=== PATIENT | male | born 1940 | race Caucasian/White ===

== ENCOUNTER → 2020-04-14 | Outpatient (CLI) | payer MEDICARE ==
[~2020-04-14] MED LIST: PRIM50TA34 PO
[2020-04-14 15:50] LABS: MICROSCOPIC NOT IND
[2020-04-14 15:52] LABS: BASOPHILS # (AUTO) 0.03 x10^3/uL (0-0.1); BASOPHILS % (AUTO) 0 % (0-1); EOSINOPHILS # (AUTO) 0.19 x10^3/uL (0-0.4); EOSINOPHILS % (AUTO) 2 % (1-7); LYMPHOCYTES # (AUTO) 1.89 x10^3/uL (1-3.4); LYMPHOCYTES % (AUTO) 23 % (22-44); MD NO; MEAN CORPUSCULAR HEMOGLOBIN 31.3 pg (27.5-34.5); MEAN CORPUSCULAR HGB CONC 33.3 g/dL (33.2-36.2); MEAN CORPUSCULAR VOLUME 94.1 fL (81-97); MEAN PLATELET VOLUME 7.6 fL (7.4-10.4); MONOCYTES # (AUTO) 1.06 x10^3/uL (0.2-0.8); MONOCYTES % (AUTO) 13 % (2-9); NEUTROPHILS # (AUTO) 5.03 x10^3/uL (1.8-6.8); NEUTROPHILS % (AUTO) 61 % (42-75); PLATELET COUNT 255 x10^3/uL (130-400); RED BLOOD COUNT 4.82 x10^6/uL (4.38-5.82); RED CELL DISTRIBUTION WIDTH 14.2 % (9.4-14.8)
[2020-04-14 15:58] LABS: PROTHROMBIN TIME 10.6 Seconds (9.6-11.5)
[2020-04-14 15:59] LABS: ANION GAP 6 mmol/L (5-15); CHLORIDE 103 mmol/L (98-107); CREATININE 0.79 mg/dL (0.7-1.3)
== END | disposition home or self-care (01) ==
LOC: STAR 14:35
PROVIDERS: ATTEND Neurological Surgery
DX: Z01.818 Encounter for other preprocedural examination (principal); Z01.811 Encounter for preprocedural respiratory examination; Z01.812 Encounter for preprocedural laboratory examination; M54.16 Radiculopathy, lumbar region; M54.5 Low back pain; R82.90 Unspecified abnormal findings in urine; R94.31 Abnormal electrocardiogram [ECG] [EKG]; I45.10 Unspecified right bundle-branch block
CPT/HCPCS: 36415; 71046; 80048; 81003; 85025; 85610; 85730; 93005

== ENCOUNTER 2020-04-28 08:48 | Observation (INO) | payer MEDICARE ==
[~2020-04-28] VITALS: Ht 175.3 cm; Wt 84.5 kg
[~2020-04-28 08:48] MED LIST changes: +BACITRACIN 50,000 UNIT ONE; +BUPIVACAINE/PF-EPI 0.5% 1:200K ONE; +VANCOMYCIN 1,000 MG ONE
[2020-04-28] MEDS ORDERED: FENTANYL PF 250 MCG/5ML ONE (09:07)
[2020-04-28] MEDS ORDERED: MIDAZOLAM 1 MG/ML, 2ML ONE (09:07)
[2020-04-28] MEDS ORDERED: LACTATED RINGERS 1,000 ML IV SCH (09:08)
[2020-04-28] MEDS ORDERED: CHLORHEXIDINE 15 ML UDC MM STA (09:08)
[2020-04-28] MEDS ORDERED: ACETAMINOPHEN 500 MG TABLET ONE (09:17)
[2020-04-28] MEDS ORDERED: CHLORHEXIDINE 15 ML UDC ONE (09:17)
[2020-04-28] MEDS ORDERED: ACETAMINOPHEN 500 MG TABLET PO ONE (09:30)
[2020-04-28] MEDS ORDERED: GLYCOPYRROLATE 0.2MG/1ML, 5ML ONE (10:21)
[2020-04-28] MEDS ORDERED: ONDANSETRON 2MG/ML, 2ML ONE (10:21)
[2020-04-28] MEDS ORDERED: PROPOFOL 10 MG/ML, 20ML ONE (10:21)
[2020-04-28] MEDS ORDERED: ROCURONIUM 10 MG/ML,10ML ONE (10:21)
[2020-04-28] MEDS ORDERED: NEOSTIGMINE 1 MG/ML, 10ML ONE (10:21)
[2020-04-28] MEDS ORDERED: PHENYLEPHRINE 10 MG/ML ONE (10:21)
[2020-04-28] MEDS ORDERED: DEXAMETHASONE 4 MG/ML, 1ML ONE (10:21)
[2020-04-28] MEDS ORDERED: LABETALOL 5MG/ML, 20ML IV PRN (11:00)
[2020-04-28] MEDS ORDERED: HYDROmorphone 1 MG/ML, 1ML INJ IVPush PRN ×2 (11:00→12:30)
[2020-04-28] MEDS ORDERED: OXYcodone 5 MG/5 ML ORAL.SOL UDC PO PRN (11:00)
[2020-04-28] MEDS ORDERED: hydrALAzine 20 MG/ML, 1ML IV PRN (11:00)
[2020-04-28] MEDS ORDERED: ONDANSETRON 2MG/ML, 2ML IVPush PRN ×2 (11:00→12:30)
[2020-04-28] MEDS ORDERED: FENTANYL PF 100 MCG/2ML ONE (12:13)
[2020-04-28] MEDS ORDERED: OXYcodone 5 MG/5 ML ORAL.SOL UDC ONE ×2 (12:13→13:35)
[2020-04-28] MEDS: FENTANYL PF 100 MCG/2ML IV PRN ×2 (12:22→12:45)
[2020-04-28] MEDS ORDERED: SENNA/DOCUSATE TABLET PO PRN (12:30)
[2020-04-28] MEDS ORDERED: HYDROcodone/APAP 5/325 TABLET PO PRN (12:30)
[2020-04-28] MEDS ORDERED: MAGNESIUM HYDROXIDE 8%, 30ML UDC PO PRN (12:30)
[2020-04-28] MEDS ORDERED: METHOCARBAMOL 1,000 MG in DEXTROSE 5% 100 ML IV ONE (12:30)
[2020-04-28] MEDS ORDERED: PRIMIDONE 50 MG TABLET PO PRN (12:30)
[2020-04-28] MEDS ORDERED: BISACODYL 10 MG SUPP PR PRN (12:30)
[2020-04-28] MEDS ORDERED: PROMETHAZINE 25 MG/ML, 1ML IM PRN (12:30)
[2020-04-28] MEDS ORDERED: PHARMACY MAY ADJ FOR RENAL FX MC PRN (12:30)
[2020-04-28] MEDS ORDERED: DIPHENHYDRAMINE 50 MG/ML, 1ML IVPush PRN (12:30)
[2020-04-28] MEDS: D5%-0.9% NACL+KCL 20MEQ 1,000 ML IV SCH (15:32)
[2020-04-28] MEDS: OXYcodone/APAP 5/325MG TABLET PO PRN ×2 (17:26→21:47)
[2020-04-28 19:54] VITALS: BP 136/77
[2020-04-28] MEDS: CEFAZOLIN PMX 1GM/50ML 50 ML IVPB SCH (20:51)
[2020-04-28 23:33] VITALS: BP 103/69
[2020-04-29] MEDS: METHOCARBAMOL 750 MG TABLET PO SCH ×2 (00:02→08:09)
[2020-04-29 03:44] VITALS: BP 100/59
[2020-04-29] MEDS: CEFAZOLIN PMX 1GM/50ML 50 ML IVPB SCH (05:30)
[2020-04-29] MEDS: D5%-0.9% NACL+KCL 20MEQ 1,000 ML IV SCH (05:30)
[2020-04-29] MEDS ORDERED: ENOXAPARIN 40 MG/0.4 ML SQ SCH (06:00)
[2020-04-29 07:07] VITALS: BP 115/82
[2020-04-29] MEDS ORDERED: METH750T87 PO (08:54)
[2020-04-29] MEDS ORDERED: OXYC5CAP2 PO (08:54)
[2020-04-30] MEDS ORDERED: METHOCARBAMOL 750 MG TABLET PO SCH (20:30)
== END 2020-04-29 10:56 | disposition home or self-care (01) ==
LOC: OUT 08:48 → 4NE 12:09 → OUT 12:09 → 4NE 13:46 → DCLOUNGE 04-29 10:50
PROVIDERS: ADMIT Neurological Surgery; ATTEND Neurological Surgery
DX: Z03.818 Encounter for observation for suspected exposure to other biological agents ruled out (principal); M48.062 Spinal stenosis, lumbar region with neurogenic claudication; M51.17 Intervertebral disc disorders with radiculopathy, lumbosacral region; G20 Parkinson's disease; M47.27 Other spondylosis with radiculopathy, lumbosacral region; Z87.891 Personal history of nicotine dependence
CPT/HCPCS: 63047; 63048; 72100; 96365; 96366; 96367; 96372; 97162; 97165; G0378; J0690; J1100; J1650; J2250; J2370; J2405; J2704; J2710; J2800; J3010; J3370; J3480; J7120; U0001